=== PATIENT | female | born 1965 | race Caucasian/White ===

== ENCOUNTER 2022-01-30 14:25 | Outpatient (CLI) | payer OTHER, SELFPAY ==
--- OUTSIDE RECORDS SUMMARY | 2021-12-29 10:04 | XMS_ITS | Continuity of Care Document ---
:1965 Author Care Team Providers Name Role Phone MD Ochoa Gordon Primary Care Physician MD Loi Gonzalez Attending Physician Allergies, Adverse Reactions, Alerts Allergen Type Severity Reaction Last Updated Verified Status Sulfa drugs Allergy Unknown rash January 10, Yes Active 2020 Social History Smoking Status Status Start Date End Date Date of Observat ion Never smoked tobacco January 10, 021 2:43pm (finding) Additional Data Assigned Sex Female Problems Active Problems Medical Problem Onset Date Status Eczema Active Herpes zoster Active Ovarian cyst Active Uterine fibroid Active Factor 5 Leiden mutation, Active heterozygous Encounter for screening for other Active viral diseases History of colonoscopy Active Exposure to COVID-19 virus Active History of hernia repair Active History of right 2016 Active salpingo-oophorectomy Medications Medication Status Dose Units Route Directions Qty Days Start End Ins tructions Date Date Albuterol Active 2 PUFF INH Every 4 1 Decembe Sulfate Hours as r 20th, (Proair Hfa) needed 2017 90 Mcg/Puff 2:33pm INH Triamcinolone Active 2-3 DROP TOP Daily as 60 Decembe Apply thin layer to affected skin as needed. Max one week Acetonide needed r 13th, of cont inous use. (Lotion) 2015 2:44pm Acetaminophen Discontin 1 TAB PO Q4h Prn October /Hydrocodone ued , , (Newcomb 5-325) 2012 2012 1 Tab TAB 2:39pm 1:56pm Acetaminophen Discontin 1-2 TAB PO Every 4 October /Hydrocodone ued Hours as 13, 31, Bitart needed 2014 2014 (Hydrocodone- 2:33pm 1:18pm Acetaminophen ) 5 Mg/325 Mg TAB Albuterol Discontin 2 PUFF INH Every 4 1 Novembe Decemb N O FURTHER Sulfate ued Hours as r 2nd, er REFILLS UNTIL (Proair Hfa) needed 2018 , SEEN I N 90 Mcg/Puff 3:58pm 2018 CLINIC. INH 2:33pm Albuterol Discontin 2 PUFF INH Every 4 1 Decembe Novemb Sulfate ued Hours as r 13th, er (Proair Hfa) needed 2015 2nd, 90 Mcg/Puff 2:44pm 2018 INH 3:58pm Albuterol Discontin 2 PUFF INH Every 4 April Sulfate ued Hours as 13, , (Proair Hfa) needed 2013 2016 90 Mcg/Puff 2:31pm 8:45am INH Amoxicillin Discontin 500 MG PO Tidx7d October ued 2012 2:39pm 1:56pm Clindamycin Discontin 300 MG PO Three Times 26 October Apri l Hcl ued A Day 2012 2:39pm 1:56pm Diphtheria/Te Discontin 0.5 ML IM Once October tanus/Acell ued , , Pertussis 2012 2012 (Adacel) 0.5 3:46pm 3:47pm Ml INJ Fluconazole Discontin 150 MG PO Once 08 OctoberOctober 06 ta b by ued , mouth every 2012 2012 72 hours as 2:39pm 1:56pm needed for yeast infection. Fluticasone Discontin 2 SPRAY EACH Bedtime September Propionate ued NOSTR 13th, er (Fluticasone 2016, Propionate 9:05am 2017 (Nasal)) 50 2:20pm Mcg/1 Alpha INH Fluticasone Discontin 2 SPRAY EACH Bedtime February Propionate ued NOSTR , , (Fluticasone 2014 2016 Propionate 1:39pm 9:05am (Nasal)) 50 Mcg/1 Alpha INH Fluticasone Discontin 2 SPRAY EACH Daily October Propionate ued NOSTR , , (Fluticasone 2014 2014 Propionate 2:43pm 1:39pm (Nasal)) 50 Mcg/1 Alpha INH Fluticasone Discontin 2 SPRAY EACH Daily April Propionate ued NOSTR , , (Fluticasone 2013 2014 Propionate 7:57am 2:43pm (Nasal)) 50 Mcg/1 Alpha INH Fluticasone Discontin 2 SPRAY EACH Daily 07 April Octobe Propionate ued NOSTR , r (Flonase) 50 2013, Mcg/1 Alpha 2:31pm 2013 YOU 2:33pm Fluticasone Discontin 2 SPRAY EACH Daily 06 October Octobe Propionate ued NOSTR , r (Fluticasone 2012, Propionate 2:41pm 2013 (Nasal)) 50 7:57am Mcg/1 Alpha INH Fluticasone Discontin 2 SPRAY EACH Daily October Propionate ued NOSTR er , (Fluticasone , 2012 Propionate 2010 2:41pm (Nasal)) 50 9:21am Mcg/1 Alpha INH Influenza Discontin 0.5 ML IM Once 1 Decembe Decemb Virus Vaccine ued r 2nd, er Split 2014 08, (Fluzone 3:19pm 2014 Quadrivalent 3:22pm (3 Yrs And Older)2014- ) 1 Inj INJ Montelukast Discontin 10 MG PO Bedtime 04 November Decemb Sodium ued , er 2014, 2:43pm 2015 2:26pm No Home Meds Discontin October ued 2012 1:56pm Terbinafine Discontin 250 MG PO Daily 04 November Octobe Hcl ued , r 2012, 2:41pm 2013 2:09pm Triamcinolone Discontin 60 ML TOP Twice A Day [facility] Acetonide ued as needed , , AFFECT ED AREA (Triamcinolon 2012 2016 e Lotion 2:41pm 8:45am 0.1%) 60 Ml LOTN Valacyclovir Discontin 1 GM PO Three Times October ust Hcl ued A Day , 2014 2:33pm 1:18pm Immunizations Immunization Event Date Not Given Dose Stream Control Officer Lot Vac cine Reason Number Number Informatio n Statement (VIS) Deta il Influenza June 07 Sanofi [id number] 2014 Tdap October 16 SANOFI [id number] (adolescent/adul 2012 t) Advance Directives Advance Directive Response Recorded Date/Time Does Pt have Health Care Yes March 11, 2015 12:36pm Directive? Has patient completed a No January 10, 2021 2 :43pm Health Care Directive? Insurance Providers Guarantor Nydia Aragon Address [address] [place], [place] [id number] Contact Info. Home Phone: Payer Policy Id Coverage Id Subscriber's Subscriber Id Effective E xpiration Name Date Date [employer] [id number] [facility] [address] Plan of Treatment Future Tests Future scheduled test information is unavailable Pending Tests Pending diagnostic test information is unavailable Future Visits Future appointment information is unavailable Referrals to Other Providers Referral information is unavailable Future Procedures Procedure Name Scheduled Date YOBANY Bilat Mammo Scrn Future Medications Future medication information is unavailable Patient Instructions Patient instructions are unavailable
--- NOTE | 2022-01-30 14:40 | CRLHL7_ITS ---
For Patients: As a result of the Century Cures Act, medical imaging exams and procedure reports are released immediately into your electronic medical record. You may view this report before your referring provider. If you have questions, please contact your health care provider. BILATERAL MAMMOGRAM WITH COMPUTER-AIDED DETECTION AND TOMOSYNTHESIS TECHNIQUE: CC and MLO views were obtained. These mammographic images have been obtained using full-field digital technique. These mammographic images were interpreted with the benefit of computer-aided detection. Breast tomosynthesis was used in this interpretation. COMPARISON FILM: 01/09/21, 12/02/19, 05/23/17. FINDINGS: There are scattered areas of fibroglandular density. IMPRESSION: There is no radiographic evidence for malignancy. ASSESSMENT: BI-RADS Category 1: Negative RECOMMENDATION: Routine screening mammogram in 1 year. A lay language report of this examination will be provided to the patient. Nicolas Sanz M.D. Diagnostic/Musculoskeletal Radiologist [email or web address] Transcribed: 9:[address]/Dictated by: Nicolas Sanz MD @ 01/31/2022 9:32:00 AM (Electronically Signed)
== END 2022-01-30 14:26 | disposition home or self-care (01) ==
LOC: MAMMO 14:26
PROVIDERS: Visit Provider Obstetrics & Gynecology
DX: Z12.31 Encounter for screening mammogram for malignant neoplasm of breast (principal)
CPT/HCPCS: 77063; 77067

== ENCOUNTER 2022-02-02 14:20 | Outpatient (CLI) | payer OTHER, SELFPAY ==
[2022-02-02 17:23] LABS: Cholesterol* 213 mg/dL (90-199)
[2022-02-02 17:24] LABS: HDL Cholesterol* 57 mg/dL (>=50); LDL Cholesterol Calculated 111 mg/dL (<100); Triglycerides* 226 mg/dL (40-149)
== END 2022-02-02 14:21 | disposition home or self-care (01) ==
PROVIDERS: Visit Provider Obstetrics & Gynecology
DX: Z01.419 Encounter for gynecological examination (general) (routine) without abnormal findings (principal); Z12.4 Encounter for screening for malignant neoplasm of cervix; Z13.6 Encounter for screening for cardiovascular disorders; Z13.29 Encounter for screening for other suspected endocrine disorder; Z11.3 Encounter for screening for infections with a predominantly sexual mode of transmission
CPT/HCPCS: 80061; 84443; 87624; 88175

== ENCOUNTER 2022-04-12 14:30 | Outpatient (RCR) | payer OTHER, SELFPAY | END 2022-07-11 13:25 | disposition home or self-care (01) | PROVIDERS: PCP Obstetrics & Gynecology; Visit Provider Obstetrics & Gynecology | DX: M25.551 Pain in right hip (principal); Z51.89 Encounter for other specified aftercare | CPT/HCPCS: 97110; 97140; 97161 ==

== ENCOUNTER 2023-01-31 08:05 | Outpatient (CLI) | payer BC, SELFPAY ==
--- NOTE | 2023-01-31 08:15 | CRLHL7_ITS ---
For Patients: As a result of the Cures Act, medical imaging exams and procedure reports are released immediately into your electronic medical record. You may view this report before your referring provider. If you have questions, please contact your health care provider. BILATERAL SCREENING MAMMOGRAM WITH COMPUTER-AIDED DETECTION AND TOMOSYNTHESIS TECHNIQUE: CC and MLO views were obtained. These mammographic images have been obtained using full-field digital technique. These mammographic images were interpreted with the benefit of computer-aided detection. Breast Tomosynthesis was used in this interpretation. COMPARISON FILM: 01/30/22, 01/09/21, 12/02/19. FINDINGS: There are scattered areas of fibroglandular density IMPRESSION: There is no radiographic evidence for malignancy. ASSESSMENT: BI-RADS Category 1: Negative RECOMMENDATION: Routine screening mammogram in 1 year. A lay language report of this examination will be provided to the patient. Richardson Fuller M.D. Diagnostic Radiologist [email or web address] Transcribed: 1:45 p.mDane jackman/Dictated by: Richardson Fuller MD @ 01/31/2023 12:20:00 PM (Electronically Signed)
== END 2023-01-31 08:06 | disposition home or self-care (01) ==
LOC: MAMMO 08:08
PROVIDERS: PCP Obstetrics & Gynecology; Visit Provider Obstetrics & Gynecology
DX: Z12.31 Encounter for screening mammogram for malignant neoplasm of breast (principal)
CPT/HCPCS: 77063; 77067

== ENCOUNTER 2023-06-28 07:27 | Outpatient (CLI) | payer BC, SELFPAY | END 2023-06-28 07:28 | disposition home or self-care (01) | LOC: NFLDREF 06-30 11:43 | PROVIDERS: PCP Emergency Medicine; Visit Provider Registered Nurse | DX: Z13.220 Encounter for screening for lipoid disorders (principal) | CPT/HCPCS: 80061 ==

== ENCOUNTER 2024-02-13 14:43 | Outpatient (CLI) | payer BC, SELFPAY ==
--- NOTE | 2024-02-13 15:00 | CRLHL7_ITS ---
For Patients: As a result of the Cures Act, medical imaging exams and procedure reports are released immediately into your electronic medical record. You may view this report before your referring provider. If you have questions, please contact your health care provider. BILATERAL SCREENING MAMMOGRAM WITH COMPUTER-AIDED DETECTION AND TOMOSYNTHESIS TECHNIQUE: CC and MLO views were obtained. These mammographic images have been obtained using full-field digital technique. These mammographic images were interpreted with the benefit of computer-aided detection. Breast Tomosynthesis was used in this interpretation. COMPARISON FILM: 01/31/23, 01/30/22, 01/09/21. FINDINGS: There are scattered areas of fibroglandular density IMPRESSION: There is no radiographic evidence for malignancy. ASSESSMENT: BI-RADS Category 2: Benign RECOMMENDATION: Routine screening mammogram in 1 year. A lay language report of this examination will be provided to the patient. Richardson Fuller M.D. Diagnostic Radiologist [email or web address] / bM/Dictated by: Richardson Fuller MD @ 02/14/2024 9:28:00 AM (Electronically Signed)
== END 2024-02-13 14:44 | disposition home or self-care (01) ==
LOC: MAMMO 14:44
PROVIDERS: PCP Emergency Medicine; Visit Provider Registered Nurse
DX: Z12.31 Encounter for screening mammogram for malignant neoplasm of breast (principal)
CPT/HCPCS: 77063; 77067

== ENCOUNTER 2024-03-10 18:08 | Outpatient (CLI) | payer BC, SELFPAY | END 2024-03-10 18:09 | disposition home or self-care (01) | PROVIDERS: PCP Emergency Medicine; Visit Provider Registered Nurse | DX: N93.9 Abnormal uterine and vaginal bleeding, unspecified (principal); Z13.1 Encounter for screening for diabetes mellitus; Z13.29 Encounter for screening for other suspected endocrine disorder | CPT/HCPCS: 82947; 84443 ==

== ENCOUNTER 2024-04-01 15:42 | Outpatient (CLI) | payer BC, SELFPAY ==
--- NOTE | 2024-04-01 16:00 | CRLHL7_ITS ---
For Patients: As a result of the Century Cures Act, medical imaging exams and procedure reports are released immediately into your electronic medical record. You may view this report before your referring provider. If you have questions, please contact your health care provider. INDICATION: Abnormal uterine bleeding COMPARISON: none TECHNIQUE: 2D yip scale and color Doppler images were acquired of the pelvis using a transabdominal and transvaginal approach. FINDINGS: Near isoechoic uterine fibroid is present within the posterior myometrium measuring 4.6 x 3.2 x 3.6 cm. Additional anterior intramural fibroid measures 3.5 x 1.9 x 5.3 cm. Multiple cervical nabothian cysts are present. Uterus measures 12.8 cm in length by 8.4 cm in AP diameter by 11.1 cm in transverse dimension. The myometrium has a heterogeneous echotexture. The endometrial lining measures 6 mm in composite thickness. The right ovary is not visualized and the left ovary is absent. There are no suspicious fluid collections within the cul-de-sac. IMPRESSION: Intramural fibroids measuring 5.3 cm and 4.6 cm. Endometrial thickness 6 millimeters. No endometrial fluid. Dictated by Richardson Fuller MD @ 04/02/2024 9:46:12 AM (Electronically Signed)
== END 2024-04-01 15:43 | disposition home or self-care (01) ==
LOC: US 15:42
PROVIDERS: PCP Emergency Medicine; Visit Provider Registered Nurse
DX: N93.9 Abnormal uterine and vaginal bleeding, unspecified (principal); D25.1 Intramural leiomyoma of uterus; R93.89 Abnormal findings on diagnostic imaging of other specified body structures
CPT/HCPCS: 76830; 76856

== ENCOUNTER 2024-06-08 06:21 | Day surgery (SDC) | payer BC, SELFPAY ==
[2024-06-08] VITALS (20 sets, daily range): BP systolic 96–163; BP diastolic 68–98; PULSE 46–74; RESP 16–18; TEMP 36.4–36.9; O2SAT 89–99; BMI 38.9
[2024-06-08] MEDS: SODIUM CHLORIDE 0.9 % (FLUSH) 10 ML SYRINGE IVF ×2 (06:50→12:15)
[2024-06-08] MEDS: LACTATED RINGERS 1000 ML 1,000 ML 100 ML IV (07:00)
[2024-06-08] MEDS: ACETAMINOPHEN 500 MG TABLET 1000 MG PO (07:00)
[2024-06-08] MEDS: OXYCODONE (CR) 10 MG TAB.ER.12H PO (07:00)
--- NOTE | 2024-06-08 07:25 | W.PM.H&PU ---
History & Physical Update History & Physical Update H&P Reviewed and patient assessed: No changes noted
--- NOTE | 2024-06-08 07:30 | CRLHL7_ITS ---
For Patients: As a result of the Cures Act, medical imaging exams and procedure reports are released immediately into your electronic medical record. You may view this report before your referring provider. If you have questions, please contact your health care provider. INDICATION: Right TH 8. TECHNIQUE: Single spot image of the right hip. 41.8 seconds fluoro time. FINDINGS: Right SHIRA components in place. Dictated by Ron Abraham MD @ 06/09/2024 10:00:31 AM (Electronically Signed)
[2024-06-08] MEDS: MIDAZOLAM HCL 1 MG/ML inj IVP (07:33)
[2024-06-08] MEDS: fentaNYL 100 MCG/2 ML inj IVP (07:33)
--- NOTE | 2024-06-08 07:42 | SUR.PREOP ---
TIME?OUT:?0733 PT/RN/MDA?VERIFICATION?OF?SURGICAL?SITE,?PROCEDURE,?AND?CONSENT OBTAINED?PRIOR?TO?INVASIVE?PROCEDURE.
[2024-06-08] MEDS: TRANEXAMIC ACID 100 MG/ML INJ 1000 MG IV (08:00)
[2024-06-08] MEDS: CEFAZOLIN 2 GM in 0.9 % SODIUM CHLORIDE Mini-bag 100 ML IVPB (08:00)
--- NOTE | 2024-06-08 08:34 | CRLHL7_ITS ---
For Patients: As a result of the Cures Act, medical imaging exams and procedure reports are released immediately into your electronic medical record. You may view this report before your referring provider. If you have questions, please contact your health care provider. INDICATION: Total hip replacement. TECHNIQUE: AP pelvis and lateral right hip. FINDINGS: New right SHIRA. Components appear well seated. Adjacent postop soft tissue air. Dictated by Ron Abraham MD @ 06/09/2024 8:50:13 AM (Electronically Signed)
--- NOTE | 2024-06-08 09:25 | PM.ORPRC ---
Procedure Note Date of procedure: 06/08/24 Procedure: PREOPERATIVE DIAGNOSIS: 1. Right hip osteoarthritis, severe, primary POSTOPERATIVE DIAGNOSIS: 1. Right hip osteoarthritis, severe, primary PROCEDURE: 1. Right total hip arthroplasty-anterior approach 2. 27297 - intraoperative fluoroscopy up to 1 hour. SURGEON: Олег Casper MD. ANTIQUE DEALER: Jeison Auguste PA-C; ELIZABETH Oh - Of note, a skilled child care assistant was critical for this case to aid in patient positioning, tissue retraction, limb manipulation/positioning, and closure. ANESTHESIA: General endotracheal anesthetic EBL: 550 mL IMPLANTS: DePuy J&J uncemented total hip [place] cup size 50, hole eliminator, +0 neutral liner Actis stem, high offset, size 4 +1 mm ceramic 32mm head COMPLICATIONS: None evident INDICATIONS: The patient is a pleasant 58-year-old female who has experienced severe right hip pain and difficulty bearing weight. Workup included x-rays which revealed severe osteoarthrosis in the hip. Given the deformity, the dysfunction, and the pain, as well as the failure of nonoperative management, recommendation was made for surgery. FINDINGS: Full-thickness cartilage loss throughout the femoral head broadly. Also around the acetabulum. Osteophytes around the perimeter of the acetabulum as well as femoral head/neck junction. Moderate effusion upon entering the joint. DESCRIPTION OF PROCEDURE: Following a thorough discussion of risks, benefits, and alternatives consent was obtained and the right hip was marked. The patient was brought to the operating room and placed supine on the operating table. Induction of anesthesia was undertaken. 2 g IV Ancef and 1 g tranexamic acid was administered within 1 hr of incision preoperatively. Proper time-out was performed identifying proper patient, site, procedure. The operative extremity was prepped and draped in the appropriate sterile fashion using ChloraPrep after the patient was positioned on the [place] table with head in neutral alignment and all bony prominences well padded. C-arm fluoroscopic imaging was utilized to confirm proper pelvis rotation and position, and to get true AP films of both the contralateral left, and the affected right hip. This is for comparison. A longitudinal incision was made starting approximately 1 cm distal to the ASIS, and 3-4 cm lateral. The incision was extended distally aiming toward the lateral border the patella. Sharp incision through skin and bovie cautery through the subcutaneous tissue allowed identification of the TFL fascia. This was sharply divided, and the fascia bluntly released from the muscle fibers as we dissected medial. Upon coming to the medial border, we were able to retract the TFL laterally, and penetrated the deeper fascia and identify the crossing circumflex vessels. These were ligated/cauterized. The rectus was elevated from the capsule, and retractors placed laterally and medially along the femoral neck to help with visualization of the capsule. We then performed an inverted T capsulotomy. The capsule was tagged for later repair. Retractors were placed inside the capsule. The femoral neck was visualized after releasing medially down to the lesser trochanter, along the saddle laterally, and up onto the acetabulum. The femoral neck cut was made in line with our preoperative templating. The head was removed in a single piece, and sized. We turned our attention to acetabular preparation. Initially, the labrum was resected from around the perimeter, the pulvinar was excised, allowing us to visualize the false wall. We started the reaming with a 43 mm reamer. This was medialized down to the true wall. We then enlarged our reamers sequentially up to one size less than the selected cup size. We trialed at the same size and found it to have an excellent fit. The selected cup was then opened, inserted, and impacted in line with the goal of 40? of abduction, and 20-25? of anteversion. This was confirmed on C-arm fluoroscopic imaging to be in the appropriate/goal position. Once the cup was placed we placed a hole eliminator and a liner consistent with preop planning. Attention was turned to the femoral preparation. The limb was extended, externally rotated, and adducted. The posteromedial capsule was released, as retractors were placed allowing excellent access to the proximal femur. Initially a corrugated box machine operator was followed by canal finder followed by various broaches. We broached sequentially up to the size noted above, found it to have excellent rotational control, and trialing various heads and necks, revealed that appropriate neck offset, and the above noted head size provided the greatest stability, and orthodoxy of length, and offset. C-arm fluoroscopic imaging confirmed position of the stem, as well as leg lengths, which were compared with the pre procedure all fluoroscopic images. Trial implants were removed, the real femoral stem inserted, as was the appropriate head. After reducing, the leg was placed through range of motion and stability was confirmed anterior, posterior, and lateral. A 3 min Betadine soak was then performed, and thorough irrigation with normal saline followed. Closure of the capsule was performed with #1 PDS. Bleeding was confirmed to be controlled at this stage, and the TFL fascia was closed with #0 strata fix. Subcutaneous, and subcuticular closure was performed with 2-0 Vicryl and 4-0 Monocryl, respectively. Dressings were applied, and the patient was awoken from anesthesia and transferred the PACU in stable condition. A skilled child care assistant was critical for this case to aid in patient positioning, tissue retraction, acetabular and proximal femoral exposure, limb manipulation/positioning, dislocation/relocation, patient safety, and closure. PLAN: 1. Weight bear as tolerated operative extremity. 2. 23 hr perioperative antibiotics. 3. Ice. 4. PT/OT consults for ambulation assistance/mobility education. 5. Social work consult for discharge planning. 6. DVT prophylaxis with at SCDs and Xarelto x5 days followed by aspirin for a total of 1 month..
--- NOTE | 2024-06-08 09:42 | W.PM.NB ---
Nerve Block Nerve Block Time Seen by Provider: 07:33 Date Seen: 06/08/24 Type of block requested by surgeon for post-operative analgesia: GORDO/LFCN Side: right Time out performed: Yes Verification of patient name: Yes Verification of date of : Yes Site marking: site marked Name of person performing procedure: Osvaldo Continuous monitoring Was continuous monitoring of O2 sat, B/P, quality assurance monitor, recorded every 15 minutes?: Yes Procedure Checklist: sterile prep, needles and gloves Ultrasound guided. Images saved: Yes Medications given in 5ml increments after negative aspiration: Marcaine %: 0.5 mL: 30 Needle gauge: 20 Precedex (mcg): 25 Patient tolerated procedure well: Yes Additional comments: Needle noted below psoas tendon needle noted adjacent to LFCN Block Charges Block Charge (with Pro Fee): Other Periph Nerve Block Use of Ultrasound Machine for Block: Yes- US Guidance/pain block
--- NOTE | 2024-06-08 09:58 | W.ANESCHARGE ---
Anesthesia Charges Start Date/Time Anesthesia Start Date: 06/08/24 Anesthesia Start Time: 07:40 Stop Date/Time Anesthesia Stop Date: 06/08/24 Anesthesia Stop Time: 09:53
--- NOTE | 2024-06-08 10:08 | W.ANESCHARGE ---
Anesthesia Charges Start Date/Time Anesthesia Start Date: 06/08/24 Anesthesia Start Time: 07:40 Stop Date/Time Anesthesia Stop Date: 06/08/24 Anesthesia Stop Time: 09:53
[2024-06-08] MEDS: OXYCODONE 5 MG TABLET PO (11:00)
[2024-06-08] MEDS: hydrOXYzine pamoate 25 MG CAPSULE PO (11:00)
[2024-06-08] MEDS: fentaNYL 100 MCG/2 ML inj 50 MCG IVP (11:15)
[2024-06-08] MEDS: ONDANSETRON 2 MG/ML inj 4 MG IVP (11:15)
[2024-06-08] MEDS: ACETAMINOPHEN 325 MG TABLET PO (13:43)
--- NOTE | 2024-06-08 13:56 | SUR.PHASEII ---
OT in room working with patient.
[2024-06-08] MEDS: METOCLOPRAMIDE HCL 5 MG/ML INJ 10 MG IVP (14:22)
--- NOTE | 2024-06-08 14:41 | SUR.PHASEII ---
Patient taken to Physical Therapy by OT at 1430.
== END 2024-06-08 15:36 | disposition home or self-care (01) ==
PROVIDERS: PCP Physician Assistant Medical; Visit Provider Orthopaedic Surgery Sports Medicine
PROC: (CPT 27130; principal; 2024-06-08 07:30)
DX: M16.11 Unilateral primary osteoarthritis, right hip (principal); G89.18 Other acute postprocedural pain; D68.51 Activated protein C resistance; M43.16 Spondylolisthesis, lumbar region; M47.816 Spondylosis without myelopathy or radiculopathy, lumbar region
CPT/HCPCS: 27130; 01214; 36415; 64450; 73501; 76000; 76942; 86850; 86900; 86901; 97110; 97116; 97161; 97165; 97535; A9270; C1776; J0330; J0665; J0690; J1100; J1171; J2250; J2371; J2405; J2704; J2710; J2765; J3010; J7120

== ENCOUNTER 2024-08-11 07:45 | Outpatient (RCR) | payer BC, SELFPAY | END 2024-12-09 23:59 | disposition home or self-care (01) | PROVIDERS: PCP Emergency Medicine; Visit Provider Orthopaedic Surgery Sports Medicine | DX: M16.11 Unilateral primary osteoarthritis, right hip (principal); Z96.641 Presence of right artificial hip joint; M25.551 Pain in right hip; M54.50 Low back pain, unspecified; Z51.89 Encounter for other specified aftercare | CPT/HCPCS: 97110; 97116; 97140; 97161; 97164 ==

== ENCOUNTER 2025-03-16 18:25 | Outpatient (CLI) | payer BC, SELFPAY ==
--- NOTE | 2025-03-16 18:40 | CRLHL7_ITS ---
For Patients: As a result of the Century Cures Act, medical imaging exams and procedure reports are released immediately into your electronic medical record. You may view this report before your referring provider. If you have questions, please contact your health care provider. INDICATION: BILATERAL SCREENING MAMOGRAM, ASYMPTOMATIC 59 Y/O FEMALE COMPARISON: 02/13/2024, 01/31/2023, 01/30/2022 TECHNIQUE: Digital mammogram in CC and MLO projections including computer-aided detection (CAD) and tomosynthesis. BREAST COMPOSITION: There are scattered areas of fibroglandular density. FINDINGS: No suspicious findings. ASSESSMENT: BI-RADS 1 Negative RECOMMENDATION: Annual screening mammogram. A lay language report of this examination will be provided to the patient. Dictated by: Richardson Fuller MD @ 03/17/2025 09:02:14 (Electronically Signed)
== END 2025-03-16 18:26 | disposition home or self-care (01) ==
LOC: MAMMO 18:26
PROVIDERS: PCP Physician Assistant Medical; Visit Provider Physician Assistant Medical
DX: Z12.31 Encounter for screening mammogram for malignant neoplasm of breast (principal)
CPT/HCPCS: 77063; 77067

== ENCOUNTER 2025-03-23 08:17 | Outpatient (CLI) | payer BC, SELFPAY | END 2025-03-23 08:18 | disposition home or self-care (01) | LOC: NFLDREF 03-28 04:15 | PROVIDERS: PCP Physician Assistant Medical; Referring Provider Physician Assistant Medical; Visit Provider Physician Assistant Medical | DX: I10 Essential (primary) hypertension (principal) | CPT/HCPCS: 80053; 80061; 84439; 84443 ==